=== PATIENT | female | born 1970 | race Two or more races ===

== ENCOUNTER 2024-08-23 19:19 | Emergency (ER) | payer MEDICAID, OTHER ==
[~2024-08-23] VITALS: Ht 160 cm; Wt 124.9 kg
--- NOTE | 2024-08-23 19:40 | ED.PDOC ---
General HPI Comments 53 year old female presents to the ED with chief complaint of flank pain. Patient reports that she has been experiencing bilateral flank pain for the past 2 days, left worse than right. Patient relays that she has associated symptoms of nausea and frequent urination. Patient states that she has been drinking a lot of fluids in case there is a kidney stone that needs to be flushed out. Patient notes that she last took a dose of Ibuprofen at 7pm today. Patient denies any vomiting, fever, dysuria, hematuria, abdominal pain, or chills. Time Seen by MD: 19:37 Reviewed notes: Nurses Notes, Medications, Allergies Allergies: Coded Allergies: NO KNOWN ALLERGIES (Unverified , 08/23/24) Home Meds Active Scripts Acetaminophen (Tylenol Extra Strength) 500 Mg Tab, 1000 MG PO Q6HP PRN, #30 TAB prn pain Prov:CAROLINA ATWOOD MD 08/23/24 Cephalexin Monohydrate (Cephalexin) 500 Mg Cap, 1 CAP PO QID for 10 Days, #40 CAP Prov:CAROLINA ATWOOD MD 08/23/24 Information Source: Patient Mode of Arrival: Ambulatory Severity: Moderate Timing: Days Duration: Since onset Prehospital treatment: None Onset: Spontaneous Symptoms: Frequency History of: None Location: (R) Flank, (L)Flank Modifying factors: None associated signs and symptoms: Nausea, Flank Pain, Frequency Past Medical History PAST MEDICAL HISTORY: DM, High Lipids, HTN Surgical History: , Tonsillectomy FORM LAYER History: Denies all FORM LAYER Hx Family History Family History: Reviewed,noncontributory to illness Social History Smoker: Non-Smoker Alcohol: Denies ETOH Use Drugs: Denies Drug Use Lives In: Home Constitutional: denies: chills, diaphoresis, fatigue, fever, malaise, sweats, weakness, others EENTM: denies: blurred vision, double vision, ear bleeding, ear discharge, ear drainage, ear pain, ear ringing, eye pain, eye redness, hearing loss, mouth pain, mouth swelling, nasal discharge, nose bleeding, nose congestion, nose pain, photophobia, tearing, throat pain, throat swelling, voice changes, others Respiratory: denies: cough, hemoptysis, orthopnea, SOB at rest, shortness of breath, SOB with excertion, stridor, wheezing, others Cardiovascular: denies: chest pain, dizzy spells, diaphoresis, Dyspnea on exertion, edema, irregular heart beat, left arm pain, lightheadedness, palpitations, PND, syncope, others Gastrointestinal: reports: nausea; denies: abdomen distended, abdominal pain, blood streaked bowels, constipated, diarrhea, dysphagia, difficulty swallowing, hematemesis, melena, poor appetite, poor fluid intake, rectal bleeding, rectal pain, vomiting, others Genitourinary: reports: flank pain, frequency; denies: abnormal vagina bl eeding, burning, dyspareunia, dysuria, hematuria, incontinence, pain, , vagina discharge, urgency, others Neurological: denies: dizziness, fainting, headache, left sided numbness, left sided weakness, numbness, paresthesia, pre-existing deficit, right sided numbness, right sided weakness, seizure, speech problems, tingling, tremors, weakness, others Musculoskeletal: denies: back pain, gout, joint pain, joint swelling, muscle pain, muscle stiffness, neck pain, others Integumetry: denies: bruises, change in color, change in hair/nails, dryness, laceration, lesions, lumps, rash, wounds, others Allergic/Immunocompromised: denies: Difficulty Healing, Frequent Infections, Hives, Itching, others Hematologic/Lymphatic: denies: anemia, blood clots, easy bleeding, easy bruising, swollen glands, others Endocrine: denies: excessive hunger, excessive sweating, excessive thirst, excessive urination, flushing, intolerance to cold, intolerance to heat, unexplained weight gain, unexplained weight loss, others Psychiatric: denies: anxiety, bipolar disorder, depression, hopeless, panic disorder, schizophrenia, sleepless, suicidal, others All Other Systems: Reviewed and Negative Physical Exam General Appearance: No Apparent Distress, Obese HEENT: Other (Pupils and face symmetric. Moist mucous membranes.) Neck: Full Range of Motion, Normal Inspection Respiratory: Lungs Clear, No Accessory Muscle Use, No Respiratory Distress, Normal Breath Sounds Cardiovascular: No Edema, No JVD, Regular Rate/Rhythm Breast Exam: Deferred Gastrointestinal: Soft, Suprapubic, Tenderness (Left greater than right flank tenderness to palpation) Genitalia: Deferred Pelvic: Deferred Rectal: Deferred Extremities: Normal inspection, Normal range of motion, No pedal edema Neurologic: Alert (Oriented x4), Normal Affect, Normal Mood, Other (Ambulatory without difficulty) Cerebellar Function: NOT DONE Reflexes: NOT DONE Skin: Dry, Normal Color, Warm Lymphatic: NOT DONE Was a procedure done? Was a procedure done?: No Differential Diagnosis Kidney stone (Female): AAA, Bowel obstruction, Musculoskeletal pain, Pyelonephritis, Renal failure, Urinary obstruction, Urolithiasis, Other (UTI) Kidney stone (Male): N/A Penile/Scrotal: N/A Urinary Problem (Male): N/A Urinary Problem (Female): Ectopic , Intrauterine X-Ray, Labs, Meds, VS Vital Signs Date Time Temp Pulse Resp B/P (MAP) Pulse Ox O2 Delivery O2 Flow Rate FiO2 08/23/24 19:25 98.3 91 18 131/70 (90) 95 98.3 Lab Test 08/23/24 20:32 08/23/24 19:40 Range/Units White Blood Count 6.4 4.4-10.8 10^3/uL Red Blood Count 6.10 H 4.0-5.20 10^6/uL Hemoglobin 13.1 12.2-16.2 g/dL Hematocrit 41.2 36.0-46.0 % Mean Corpuscular Volume 67.5 L 80.0-100.0 fL Mean Corpuscular Hemoglobin 21.5 L 28.0-32.0 pg Mean Corpuscular Hemoglobin Concent 31.9 L 32.0-36.0 g/dL Red Cell Distribution Width 15.8 H 11.8-14.3 % Platelet Count 228 140-450 10^3/uL Mean Platelet Volume 8.9 6.9-10.8 fL Neutrophils (%) (Auto) 42.4 37.0-80.0 % Lymphocytes (%) (Auto) 42.9 10.0-50.0 % Monocytes (%) (Auto) 8.2 0.0-12.0 % Eosinophils (%) (Auto) 5.5 0.0-7.0 % Basophils (%) (Auto) 1.0 0.0-2.0 % Neutrophils # (Auto) 2.7 1.6-8.6 10 ^3/uL Lymphocytes # (Auto) 2.7 0.4-5.4 10 ^3/uL Monocytes # (Auto) 0.5 0-1.3 10 ^3/uL Eosinophils # (Auto) 0.3 0-0.8 10 ^3/uL Basophils # (Auto) 0.1 0-0.2 10 ^3/uL Nucleated Red Blood Cells 0.1 % Platelet Estimate Pending Sodium Level 141 136-145 mmol/L Potassium Level 4.0 3.5-5.1 mmol/L Chloride Level 107 98-107 mmol/L Carbon Dioxide Level 24 20-31 mmol/L Anion Gap 10 5-15 Blood Urea Nitrogen 11 9-23 mg/dL Creatinine 1.01 0.550-1.02 mg/dL Glomerular Filtration Rate Calc 66 >90 mL/min BUN/Creatinine Ratio 10.9 10.0-20.0 Serum Glucose 93 74-106 mg/dL Calcium Level 9.8 8.7-10.4 mg/dL Total Bilirubin 0.4 0.2-1.0 mg/dL Aspartate Amino Transferase (AST) 36 13-40 U/L Alanine Aminotransferase (ALT) 31 7-40 U/L Alkaline Phosphatase 60 46-116 U/L Total Protein 7.9 5.7-8.2 g/dL Albumin 4.3 3.2-4.8 g/dL Beta HCG, Quantitative 1.6 1.5-4.2 mIU/mL Urine Color Light-yellow Yellow Urine Clarity Clear Clear Urine pH 5.5 5.0-9.0 Urine Specific [place] 1.016 1.001-1.035 Urine Protein Trace H Negative Urine Ketones Negative Negative Urine Blood Negative Negative /uL Urine Nitrite Negative Negative Urine Bilirubin Negative Negative Urine Urobilinogen Normal Negative mg/dL Urine Leukocyte Esterase 1+ Negative /uL Urine RBC 1 0 - 4 /hpf Urine Microscopic WBC 6 H 0-5 /HPF Urine Squamous Epithelial Cells Few <5 /hpf Urine Bacteria Few H None Seen /hpf Urine Mucus Few None Seen Urine Glucose Normal Normal mg/dL PROCEDURE(s): ABPL - CT AB PEL WO CON-NO ORAL OR IV REASON: L>R flank pain, low abd pain ORDER NUMBER(s): [id number], ACCESSION NUMBER(s): [id number] Exam: CT CT AB PEL WO CON-NO ORAL OR IV History: L>R flank pain, low abd pain Comparison Study: None available at time of dictation. TECHNIQUE: Multidetector CT of the abdomen was performed from lung bases to pubic symphysis. Imaging was performed without IV contrast. Axial, coronal and sagittal multiplanar reformats were obtained from the axial data set by the technologist. Radiation Dose Information: CT Dose: CTDI volume is 27.87 mGy. Dose-length product is 1853.04 mGy*cm FINDINGS: Evaluation of solid organs is limited due to lack of intravenous contrast use. Findings: Lung Bases: No acute or significant lung base finding. Normal heart size. No pleural or pericardial effusion. Liver: The liver is normal in size. No focal lesions. Hepatic steatosis Gallbladder and Biliary Tree: Unremarkable Spleen: Unremarkable Pancreas: The pancreas is grossly normal in appearance. Adrenal Glands: Unremarkable Kidneys: Kidneys are grossly normal without calculi or hydronephrosis. Bladder: Grossly unremarkable for degree of distention. Bowel: The stomach is grossly normal in appearance. Small bowel and colon are normal in caliber and distribution. The appendix is not visualized; however, no secondary findings of acute appendicitis identified. Ascites: Absent Lymphadenopathy: No mesenteric, retroperitoneal or periportal lymphadenopathy. Abdominal Wall and Mesentery: Unremarkable. Vasculature: The visualized abdominal aorta is normal in size and caliber. Evaluation of abdominal and pelvic vessels is limited due to lack of intravenous contrast. Pelvic Organs: Unremarkable Musculoskeletal: No aggressive focal bony lesions, acute fractures or dislocation. Soft tissues: Unremarkable IMPRESSION: 1. Hepatic steatosis 2. No nephrolithiasis or hydronephrosis. 3. No CT findings of bowel obstruction 4. No free air or free fluid. Radiation optimization: All CT scans at this facility use at least one of these dose optimization techniques: automated exposure control mA and/or kV adjustment per patient size (includes targeted exams where dose is matched to clinical indication) or iterative reconstruction. X-Ray, Labs, Meds, VS Comment 53-year-old female with a history of diabetes, dyslipidemia and hypertension complaining of left greater than right flank pain, associated with nausea and urinary frequency Vitals unremarkable Exam remarkable for left greater than right flank tenderness to palpation, mild suprapubic tenderness to palpation Rhythm strip independently interpreted by me: Sinus rhythm, rate 91, no ectopy. CT abdomen and pelvis IMPRESSION: 1. Hepatic steatosis 2. No nephrolithiasis or hydronephrosis. 3. No CT findings of bowel obstruction 4. No free air or free fluid. CBC unremarkable, CMP normal, hCG neg, UA abnormal consistent with UTI Patient treated with the following in the ED: 1 L 0.9 normal saline IV bolus, Rocephin 1 g IV, toradol 30mg IV, Zofran 4 mg IV On re-evaluation, patient states pain has improved. Vitals were stable. Hospitalization was considered, however patient had rapid improvement of symptoms with treatment in the ED, workup is essentially unremarkable aside from UTI, and I no longer feel hospitalization is necessary. Patient appears stable for discharge with close outpatient follow-up with her primary physician. Rx Keflex, tylenol Time of 1ST Reevaluation: 20:37 Reevaluation 1ST: Improved Patient Education/Counseling: Diagnosis, Treatment Family Education/Counseling: No Family Present Additional Information -Reviewed patient's previous visit(s): - The following tests were ordered, and results were reviewed by me: - Additional information was gathered from interviewing the following independent Historian: - I reviewed and agreed with the following test results read by other provider: - I discussed treatments and results with medical personnel and: patient Comprehensive systems review obtained and negative except for what is stated in the HPI. Departure 1 Departure Time of Disposition: 21:05 Impression: Primary Impression: UTI (urinary tract infection) Qualified Codes: N39.0 - Urinary tract infection, site not specified Disposition: HOME / SELF CARE / HOMELESS Condition: Stable Additional Instructions: Your tests were unremarkable. Specifically, your BUN and creatinine were normal. Your urine test showed you have an urinary tract infection. Your CT scan did not show any kidney stone or kidney abnormality. I have enclosed the report below. I have prescribed antibiotics for your infection and medication for pain. You may also continue ibuprofen as needed for pain. Follow-up with your primary doctor in 1-2 days. Return to ER for persistent or worsening symptoms. [place] [id number] Ph: [phone] DIAGNOSTIC IMAGING Diagnostic Imaging Report : [id number] Signed PATIENT: IRAM IRVIN ACCT: [id number] UNIT: [id number] : 1970 LOC: ER ROOM / BED: / AGE / SEX: 53 / F ADM STATUS: REG ER SERVICE 35 ORDERING PHYSICIAN: CAROLINA ATWOOD MD PROCEDURE(s): ABPL - CT AB PEL WO CON-NO ORAL OR IV REASON: L>R flank pain, low abd pain ORDER NUMBER(s): [id number], ACCESSION NUMBER(s): [id number] Exam: CT CT AB PEL WO CON-NO ORAL OR IV History: L>R flank pain, low abd pain Comparison Study: None available at time of dictation. TECHNIQUE: Multidetector CT of the abdomen was performed from lung bases to pubic symphysis. Imaging was performed without IV contrast. Axial, coronal and sagittal multiplanar reformats were obtained from the axial data set by the technologist. Radiation Dose Information: CT Dose: CTDI volume is 27.87 mGy. Dose-length product is 1853.04 mGy*cm FINDINGS: Evaluation of solid organs is limited due to lack of intravenous contrast use. Findings: Lung Bases: No acute or significant lung base finding. Normal heart size. No pleural or pericardial effusion. Liver: The liver is normal in size. No focal lesions. Hepatic steatosis Gallbladder and Biliary Tree: Unremarkable Spleen: Unremarkable Pancreas: The pancreas is grossly normal in appearance. Adrenal Glands: Unremarkable Kidneys: Kidneys are grossly normal without calculi or hydronephrosis. Bladder: Grossly unremarkable for degree of distention. Bowel: The stomach is grossly normal in appearance. Small bowel and colon are normal in caliber and distribution. The appendix is not visualized; however, no secondary findings of acute appendicitis identified. Ascites: Absent Lymphadenopathy: No mesenteric, retroperitoneal or periportal lymphadenopathy. Abdominal Wall and Mesentery: Unremarkable. Vasculature: The visualized abdominal aorta is normal in size and caliber. E valuation of abdominal and pelvic vessels is limited due to lack of intravenous contrast. Pelvic Organs: Unremarkable Musculoskeletal: No aggressive focal bony lesions, acute fractures or dislocation. Soft tissues: Unremarkable IMPRESSION: 1. Hepatic steatosis 2. No nephrolithiasis or hydronephrosis. 3. No CT findings of bowel obstruction 4. No free air or free fluid. Radiation optimization: All CT scans at this facility use at least one of these dose optimization techniques: automated exposure control mA and/or kV adjustment per patient size (includes targeted exams where dose is matched to clinical indication) or iterative reconstruction. e-Prescriptions Acetaminophen (Tylenol Extra Strength) 500 Mg Tab 1000 MG PO Q6HP PRN, #30 TAB prn pain Prov: CAROLINA ATWOOD MD 08/23/24 Cephalexin Monohydrate (Cephalexin) 500 Mg Cap 1 CAP PO QID for 10 Days, #40 CAP Prov: CAROLINA ATWOOD MD 08/23/24 Discharged With: Self Critical Care Note Critical Care Time?: No Stability Stability form required: No Heart Score Heart Score: Heart Score Response (Comments) Value History N/A 0 EKG N/A 0 Age N/A 0 Risk Factors N/A 0 Troponin N/A 0 Total 0 I personally scribed for CAROLINA ATWOOD MD ([email or web address]) on 08/23/24 at 19:39. Electronically submitted by Maico Ingram ([email or web address]). CAROLINA ATWOOD MD Aug 23, 2024 19:39
[2024-08-23] MEDS ORDERED: MORPHINE SULFATE 4 MG/ML SYR/VIAL IV ONE (19:45)
[2024-08-23 20:00] LABS: Urine Bacteria FEW /hpf (None Seen); Urine Blood Negative /uL (Negative); Urine Clarity Clear (Clear); Urine Color Light-Yellow (Yellow); Urine Mucus FEW (None Seen); Urine Protein, UAD TRACE (Negative); Urine Specific Gravity 1.016 (1.001-1.035); Urine Squamous Epithelial Cell FEW /hpf (<5); Urine Urobilinogen Normal (Negative); Urine WBC 6 /HPF (0-5); Urine pH 5.5 (5.0-9.0)
--- NOTE | 2024-08-23 20:45 | DVH ---
Exam: CT CT AB PEL WO CON-NO ORAL OR IV History: L>R flank pain, low abd pain Comparison Study: None available at time of dictation. TECHNIQUE: Multidetector CT of the abdomen was performed from lung bases to pubic symphysis. Imaging was performed without IV contrast. Axial, coronal and sagittal multiplanar reformats were obtained fr om the axial data set by the technologist. Radiation Dose Information: CT Dose: CTDI volume is 27.87 mGy. Dose-length product is 1853.04 mGy*cm FINDINGS: Evaluation of solid organs is limited due to lack of intravenous contrast use. Findings: Lung Bases: No acute or significant lung base finding. Normal heart size. No pleural or pericardial effusion. Liver: The liver is normal in size. No focal lesions. Hepatic steatosis Gallbladder and Biliary Tree: Unremarkable Spleen: Unremarkable Pancreas: The pancreas is grossly normal in appearance. Adrenal Glands: Unremarkable Kidneys: Kidneys are grossly normal without calculi or hydronephrosis. Bladder: Grossly unremarkable for degree of distention. Bowel: The stomach is grossly normal in appearance. Small bowel and colon are normal in caliber and d istribution. The appendix is not visualized; however, no secondary findings of acute appendicitis id entified. Ascites: Absent Lymphadenopathy: No mesenteric, retroperitoneal or periportal lymphadenopathy. Abdominal Wall and Mesentery: Unremarkable. Vasculature: The visualized abdominal aorta is normal in size and caliber. Evaluation of abdominal a nd pelvic vessels is limited due to lack of intravenous contrast. Pelvic Organs: Unremarkable Musculoskeletal: No aggressive focal bony lesions, acute fractures or dislocation. Soft tissues: Unremarkable IMPRESSION: 1. Hepatic steatosis 2. No nephrolithiasis or hydronephrosis. 3. No CT findings of bowel obstruction 4. No free air or free fluid. Radiation optimization: All CT scans at this facility use at least one of these dose optimization te chniques: automated exposure control mA and/or kV adjustment per patient size (includes targeted exa ms where dose is matched to clinical indication) or iterative reconstruction.
[2024-08-23 20:50] LABS: Basophils # (auto) 0.1 10 ^3/uL (0-0.2); Eosinophils # (auto) 0.3 10 ^3/uL (0-0.8); Hematocrit 41.2 % (36.0-46.0); Hemoglobin 13.1 g/dL (12.2-16.2); Mean Corpuscular Hgb Conc. 31.9 g/dL (32.0-36.0); Monocytes # (auto) 0.5 10 ^3/uL (0-1.3); Neutrophils # (auto) 2.7 10 ^3/uL (1.6-8.6); White Blood Cell 6.4 10^3/uL (4.4-10.8)
[2024-08-23 20:51] LABS: Eosinophils % (auto) 5.5 % (0.0-7.0); Lymphocytes # (auto) 2.7 10 ^3/uL (0.4-5.4); Lymphocytes % (auto) 42.9 % (10.0-50.0); Mean Corpuscular Hemoglobin 21.5 pg (28.0-32.0); Mean Corpuscular Volume 67.5 fL (80.0-100.0); Monocytes % (auto) 8.2 % (0.0-12.0); Neutrophils % (auto) 42.4 % (37.0-80.0); Nucleated Red Blood Cells % 0.1 %; Platelet Count (auto) 228 10^3/uL (140-450); Red Cell Distribution Width 15.8 % (11.8-14.3)
[2024-08-23 21:04] LABS: Alanine Aminotransferase 31 U/L (7-40); Albumin 4.3 g/dL (3.2-4.8); Alkaline Phosphatase 60 U/L (46-116); Anion Gap 10 (5-15); Aspartate Aminotransferase 36 U/L (13-40); BUN/Creatinine Ratio 10.9 (10.0-20.0); Bilirubin, Total 0.4 mg/dL (0.2-1.0); Blood Urea Nitrogen 11 mg/dL (9-23); Calcium 9.8 mg/dL (8.7-10.4); Carbon Dioxide 24 mmol/L (20-31); Glucose 93 mg/dL (74-106); Sodium 141 mmol/L (136-145); Total Protein 7.9 g/dL (5.7-8.2)
[2024-08-23 21:08] LABS: Chloride 107 mmol/L (98-107)
[2024-08-23] MEDS ORDERED: CEPH500C PO (21:11)
[2024-08-23] MEDS ORDERED: ACET-1304 PO (21:11)
[2024-08-23] MEDS: ONDANSETRON HCL 4 MG/2 ML VIAL IV ONE (21:32)
[2024-08-23] MEDS: KETOROLAC TROMETH 30 MG/ML 1ML VIAL IV ONE (21:32)
[2024-08-23] MEDS: cefTRIAXone 1GM/50ML D5W 50 ML IV ONE (21:33)
[2024-08-23] MEDS: SODIUM CHLORIDE 0.9% 1,000 ML IV ONE (21:34)
[2024-08-23 22:06] LABS: Large Platelets FEW; Platelet Estimate Adequa
[2024-08-23 22:59] VITALS: BP 144/86; PULSE 70; RESP 19; TEMP 97.8; O2SAT 100
== END 2024-08-23 23:00 | disposition home or self-care (01) ==
LOC: ER 19:19
DX: N39.0 Urinary tract infection, site not specified (principal); I10 Essential (primary) hypertension; E11.9 Type 2 diabetes mellitus without complications; R10.2 Pelvic and perineal pain; E78.5 Hyperlipidemia, unspecified; Z90.89 Acquired absence of other organs; Z98.890 Other specified postprocedural states
CPT/HCPCS: 36415; 74176; 80053; 81001; 84702; 85025; 87086; 96365; 96375; 99285; J0696; J1885; J2405; J7030